=== PATIENT | male | born 2000 | race Caucasian/White ===

== ENCOUNTER 2025-08-20 14:32 | Emergency (ER) | payer MEDICAID ==
[~2025-08-20] VITALS: Ht 190.5 cm; Wt 128.0 kg
[2025-08-20 14:36] VITALS: TEMP 97.5
--- NOTE | 2025-08-20 14:46 | Physician Documentation ---
History of Present Illness ~ Chief Complaint: Seizure Stated Complaint: SEIZURE Time Seen by MD: 14:42 HPI 25-year-old male presents to the ED after having two witnessed seizures today. One this morning and one at 2:00 p.m.. Patient had tonic-clonic seizures and he reports being sober from echo for over a month. Initially he is oriented x2 with a blood glucose of 109. Patient also has a history of autism. Patient has never had any reported previous seizures up until today.. Patient behaving inappropriate to the situation Day of Onset: Aug 20, 2025 Medication Reconciliation Allergies: Coded Allergies: No Known Allergies (Unverified , 08/20/25) Scheduled Levetiracetam (Keppra), 1 TAB PO Q12H Review of Systems All Other Systems at this time: Reviewed and Negative ROS As stated above in the HPI, otherwise all systems are reviewed and negative. Physical Exam Vital Signs: Temperature: 97.5, Source: Temporal, Heart Rate: 87, Respiratory Rate: 20, BP: 138/78, Pulse Oximetry: 98, Weight: 128.000 Physical Exam General: Alert, no apparent distress. HEENT: PERRL, EOMI, no injection, moist mucous membranes. Respiratory: Lungs clear, no respiratory distress. Cardiovascular: Regular rate and rhythm, no murmurs. Gastrointestinal: Soft, nontender, nondistended. Bowels sounds present. Neurologic: Oriented x3 Psychiatric: odd affect Skin: Normal color, warm and dry. No edema, no ecchymosis. Progress Results/Orders Results/Orders Laboratory Tests Test 08/20/25 15:13 08/20/25 15:24 White Blood Count 14.0 H Red Blood Count 5.28 Hemoglobin 15.9 Hematocrit 46.0 Mean Corpuscular Volume 87.2 Mean Corpuscular Hemoglobin 30.0 Mean Corpuscular Hemoglobin Concent 34.4 Red Cell Distribution Width 13.3 Platelet Count 346 Mean Platelet Volume 7.7 Neutrophils (%) (Auto) 84.1 H Lymphocytes (%) (Auto) 9.4 L Monocytes (%) (Auto) 5.9 Eosinophils (%) (Auto) 0.2 Basophils (%) (Auto) 0.4 Neutrophils # (Auto) 11.8 H Lymphocytes # (Auto) 1.3 Monocytes # (Auto) 0.8 Eosinophils # (Auto) 0.0 Basophils # (Auto) 0.1 CBC Comment Sodium Level 142 Potassium Level 3.5 Chloride Level 105 Carbon Dioxide Level 27.6 Anion Gap 9 Blood Urea Nitrogen 10 Creatinine 1.01 Estimated GFR/1.73 m2 89 BUN/Creatinine Ratio 9.9 L Glucose Level 104 Calcium Level 8.5 Albumin 4.0 Chemistry Comments Urine Specimen Description Urinal Urine Color Yellow Urine Clarity Clear Urine pH 6.0 Urine Specific [place] 1.020 Urine Protein Negative Urine Glucose (UA) Negative Urine Ketones Trace H Urine Occult Blood Negative Urine Nitrite Negative Urine Bilirubin Negative Urine Urobilinogen 0.2 Urine Leukocyte Esterase Negative Urine Culture Indicated Not ind Volume Urine Centrifuged 10 ml Urine Comment Urine Opiates Screen Negative Urine Methadone Screen Negative Urine Fentanyl Screen Negative Urine Barbiturates Screen Negative Urine Phencyclidine Screen Negative Urine Amphetamines Screen Negative Urine Benzodiazepines Screen Negative Urine Cocaine Screen Negative Urine Cannabinoids Screen Positive Drug Screen Comment Medical Decision Making Findings During my re-evaluation the patient's biological brother indicated that the patient has been homeless recently and the patient was sounded like he has been using methamphetamine when talking to him on the phone.. He has a long history of alcohol abuse his brother suspects that maybe he was withdrawing from alcohol. physical examination is normal and there was no post ictal features. His blood test results are well within normal. He will be discharged form ED with aftercare and return instructions. Differential Dx:Considerations: Include: Hyperventilation, Psychogenic seizure, Due to alcohol withdrawl, Anticonvulsant withdrawl, Due to closed head injury, Due to CVA/TIA, Due to drug ingestion, Due to eclampsia, Due to hypocalcemia, Due to hypoglycemia, Due to hyponatremia, Due to hypoxemia, Idiopathic, Due to mass lesion, Due to meningitis, Syncope, Encephalopathy, Epilepsy-break through, Epilepsy-status, Other Departure Disposition: 01 HOME / SELF CARE / HOMELESS Impression: Primary Impression: Alcohol withdrawal syndrome Additional Impression: Seizure disorder Condition: Stable Discharge Instructions: Seizure, Adult Referrals: NO PRIMARY CARE PROVIDER (PCP) Prescriptions Levetiracetam (Keppra) 500 Mg Tablet 1 TAB PO Q12H for 30 Days, #60 TAB 0 Refills Prov: JARETT AGUILERA OPHTHALMIC ASSISTANT 08/20/25 Education Educated: Patient Educated regarding: diagnosis Signature Scribe Signature: gf Attestation: Scribed for Jarett Aguilera Concrete Foreman by Jarett Aguilera - CARLEEN . 08/20/25 15:18 JARETT AGUILERA NP Aug 20, 2025 14:46 MARIO GODWIN MD Aug 27, 2025 18:06
--- NOTE | 2025-08-20 15:01 | ELECTROCARDIOGRAPH REPORT ---
[facility] Test Date: 2025-08-20 Test Time: 14:58:15 Pat Name: SELINA SHEA Department: [facility] Patient ID: [id number] Room: Gender: M Customer Service Sales Consultant: : 2000 Requested By: BIBI AGUILERA Order Number: [id number] Reading MD: Dr. Mat Salinas Measurements Intervals [place] Rate: 86 P: 35 NM: 162 QRS: 32 QRSD: 101 T: 40 QT: 363 QTc: 434 Interpretive Statements Sinus rhythm Electronically Signed On 08-20-2025 21:39:[address] Mat Salinas Please click the below link to view image of tracing.
--- NOTE | 2025-08-20 15:15 | RADIOLOGY REPORT ---
CHEST RADIOGRAPH Indication: aloc Technique: Single frontal view of the chest was obtained Comparison: None FINDINGS: Lines and Tubes: None Lungs: No focal consolidation. Pleura: No effusion. No pneumothorax. Cardiomediastinal contours: Unremarkable Bones: No acute osseous abnormality. IMPRESSION: No acute cardiopulmonary disease.
[2025-08-20 15:30] LABS: MEAN PLATELET VOLUME 7.7 FL (7.4-10.4); RED CELL DISTRIBUTION WIDTH 13.3 % (11.5-14.5)
[2025-08-20] MEDS: diazepam inj 5 MG/ML inj. IV ONE (15:34)
[2025-08-20 15:46] LABS: CREATININE 1.01 MG/DL (0.60-1.10); TOTAL CARBON DIOXIDE 27.6 MMOL/L (24-32); eCRCL 131 ML/MIN; eGFR 89 ML/MIN
[2025-08-20] MEDS: levetiracetam inj 750 MG in normal saline 100ml IV soln 100 ML IV ONE (16:03)
[2025-08-20 16:06] LABS: LEUKOCYTE ESTERASE ,URINE NEGATIVE (Neg); NITRITES, URINE NEGATIVE (Neg); OCCULT BLOOD,URINE NEGATIVE (Neg)
--- NOTE | 2025-08-20 16:11 | RADIOLOGY REPORT ---
CT CT HEAD Indication: acute seizure EXAM DATE: 08/20/2025 03:49 PM COMPARISON: None TECHNIQUE: CT of the head without intravenous contrast. RADIATION DOSE: CTDIvol: 69.2 mGy, DLP: 1235 mGy*cm FINDINGS: There is no intracranial hemorrhage. There is no extra-axial fluid, mass, mass effect or midline shift. The ventricles are midline and normal in size. Basilar cisterns are patent. Faith-white differentiation is maintained. Mastoids well pneumatized. Mucosal thickening right maxillary sinus. Imaged portion of the orbits are unremarkable. IMPRESSION: No intracranial hemorrhage or mass effect.
[2025-08-20 16:16] LABS: UA COLLECTION TYPE URINAL
[2025-08-20 17:19] LABS: URINE AMPHETAMINE SCREEN NEGATIVE (Neg); URINE BARBITUATE SCREEN NEGATIVE (Neg); URINE BENZODIAZEPINES SCREEN NEGATIVE (Neg); URINE CANNABINOID SCREEN POSITIVE (Neg); URINE COCAINE SCREEN NEGATIVE (Neg); URINE METHADONE SCREEN NEGATIVE (Neg); URINE OPIATE SCREEN NEGATIVE (Neg); URINE PHENCYCLIDINE SCREEN NEGATIVE (Neg)
[2025-08-20] MEDS ORDERED: KEP500T PO (17:55)
[2025-08-20 18:20] VITALS: BP 148/88; PULSE 80; RESP 16; O2SAT 100
== END 2025-08-20 18:22 | disposition home or self-care (01) ==
LOC: ER 14:33
DX: F10.239 Alcohol dependence with withdrawal, unspecified (principal); G40.409 Other generalized epilepsy and epileptic syndromes, not intractable, without status epilepticus; Z79.899 Other long term (current) drug therapy; Y90.9 Presence of alcohol in blood, level not specified
CPT/HCPCS: 36415; 70450; 71045; 80048; 80305; 81003; 85025; 93005; 96374; 96375; 99285; J1953; J3360; 96365